=== PATIENT | female | born 1995 | race African-American/Black ===

== ENCOUNTER 2018-06-01 14:39 | Emergency (ER) | payer MEDICAID ==
[~2018-06-01] VITALS: Ht 160 cm; Wt 45.0 kg
[2018-06-01] MEDS ORDERED: ACETAMINOPHEN 325MG TABLET PO ONE (18:30)
[2018-06-01] MEDS ORDERED: METOCLOPRAMIDE HCL 5MG TABLET PO ONE (18:30)
[2018-06-01 18:51] LABS: CLARITY URINE TURBID (CLEAR); COLOR URINE DARK YELLOW (YELLOW); KETONES URINE 4+ (NEGATIVE); LEUKOCYTE ESTERASE URINE 1+ (NEGATIVE); NITRITE URINE NEGATIVE (NEGATIVE); OCCULT BLOOD URINE NEGATIVE (NEGATIVE); PROTEIN URINE 1+ (NEGATIVE); SPECIFIC GRAVITY URINE 1.032 (1.005-1.030)
[2018-06-01 18:57] LABS: BASOPHILS % 0.4 % (0.0-2.0); EOSINOPHILS % 0.2 % (0.0-5.0); HEMOGLOBIN. 13.9 g/dL (12.0-16.0); LYMPHOCYTES % 15.9 % (20.0-50.0); MEAN CORPUSCULAR HEMOGLOBIN 31.5 pg (28.0-32.0); MEAN CORPUSCULAR VOLUME 94.9 fL (81.0-99.0); MEAN PLATELET VOLUME 7.9 fl (7.4-10.4); MONOCYTES % 7.6 % (2.0-8.0); NEUTROPHILS % 75.9 % (40.0-76.0); PLATELET 222 x1000/uL (130-400); RED BLOOD CELL COUNT 4.43 mill/uL (4.2-5.4); RED CELL DISTRIBUTION WIDTH 12.5 % (11.6-14.6)
[2018-06-01 19:05] LABS: INR 1.1; PROTHROMBIN TIME 11.4 sec (9.1-11.1)
[2018-06-01 19:08] LABS: CHLORIDE 101 mEq/L (98-107)
[2018-06-01 19:32] LABS: B-HCG QUANTITATIVE 23928 mIU/mL (<3)
[2018-06-01] MEDS ORDERED: NITROFURANTOIN 100MG M/M CAPSULE PO SCH (22:54)
[2018-06-02 08:32] VITALS: BP 118/67
== END 2018-06-02 08:36 | disposition home or self-care (01) ==
LOC: ER 14:39
DX: O23.41 Unspecified infection of urinary tract in pregnancy, first trimester (principal); O99.321 Drug use complicating pregnancy, first trimester; F12.10 Cannabis abuse, uncomplicated; O26.891 Other specified pregnancy related conditions, first trimester; E16.2 Hypoglycemia, unspecified; Z3A.01 Less than 8 weeks gestation of pregnancy; Z59.0 Homelessness; Z63.32 Other absence of family member; Z71.89 Other specified counseling
CPT/HCPCS: 36415; 76801; 81025; 82962; 84702; 86850; 86900; 99285; J8597

== ENCOUNTER 2021-10-20 01:05 | Emergency (ER) | payer MEDICAID ==
[~2021-10-20] VITALS: Ht 160 cm; Wt 55.0 kg
[2021-10-20] MEDS ORDERED: IBUPROFEN 600MG TABLET PO NR (03:03)
[2021-10-20] MEDS ORDERED: CIPHCO RIGHT EAR (03:16)
[2021-10-20] MEDS ORDERED: IBUP-2029 PO (03:16)
[2021-10-20 05:10] VITALS: BP 126/83
== END 2021-10-20 05:12 | disposition home or self-care (01) ==
LOC: ER 01:11
DX: H60.501 Unspecified acute noninfective otitis externa, right ear (principal); F12.10 Cannabis abuse, uncomplicated; Z88.0 Allergy status to penicillin
CPT/HCPCS: 81025; 99283

== ENCOUNTER 2024-01-28 10:57 | Emergency (ER) | payer MEDICAID ==
[~2024-01-28] VITALS: Ht 167.6 cm; Wt 58.0 kg
[~2024-01-28 10:57] MED LIST: CIPHCO RIGHT EAR; IBUP-2029 PO
[2024-01-28 11:30] VITALS: BP 133/88; PULSE 87; RESP 18; TEMP 98.2; O2SAT 99
== END 2024-01-28 15:03 | disposition home or self-care (01) ==
LOC: ER 10:57
DX: T19.2XXA Foreign body in vulva and vagina, initial encounter (principal); F12.10 Cannabis abuse, uncomplicated; Z88.0 Allergy status to penicillin; X58.XXXA Exposure to other specified factors, initial encounter; Y93.89 Activity, other specified; Y92.89 Other specified places as the place of occurrence of the external cause; Y99.8 Other external cause status
CPT/HCPCS: 99284